=== PATIENT | male | born 1940 | race Caucasian/White ===

== ENCOUNTER 2019-02-10 15:47 | Emergency (ER) | payer MEDICARE, BC ==
[~2019-02-10] VITALS: Ht 172.7 cm; Wt 96.2 kg
[2019-02-10 16:29] LABS: BASO % 1 % (0-3); EOS # 0.1 x10^3/uL (0.0-0.7); EOS % 2 % (0-3); HEMATOCRIT 39.4 % (39.0-53.0); HEMOGLOBIN 13.1 g/dL (13.0-17.5); LYMPH % 21 % (24-48); MEAN CORPUSCULAR HEMOGLOBIN 31 pg (25-35); MEAN CORPUSCULAR HGB CONC 33 g/dL (31-37); MEAN CORPUSCULAR VOLUME 93 fL (79-100); MONO # 0.5 x10^3/uL (0.0-1.1); MONO % 10 % (0-9); NEUT # 3.3 x10^3/uL (1.8-7.7); NEUT % 67 % (31-73); PLATELET COUNT 161 x10^3/uL (140-400); RED BLOOD COUNT 4.23 x10^6/uL (4.30-5.70); RED CELL DISTRIBUTION WIDTH 14.9 % (11.5-14.5); WHITE BLOOD COUNT 4.9 x10^3/uL (4.0-11.0)
[2019-02-10] MEDS ORDERED: MORPHINE SULFATE 2 MG/ML VIAL. IV/SQ PRN (16:30)
[2019-02-10 16:48] LABS: CALCIUM 8.8 mg/dL (8.5-10.1); GFR 72.1; POTASSIUM 4.1 mmol/L (3.5-5.1)
[2019-02-10 16:53] LABS: PROTHROMBIN TIME PATIENT 13.2 SEC (11.7-14.0)
--- NOTE | 2019-02-10 16:53 | RAD ---
EXAM: Chest, single view. HISTORY: Shortness of air. COMPARISON: None. FINDINGS: A frontal view of the chest is obtained. There is mild diffuse increased interstitial opacity. There is focal opacity overlying the left upper lobe likely due to a prominent first rib end. There is no consolidation, pleural effusion or pneumothorax. There is a prominent cardiac silhouette. IMPRESSION: 1. Mild diffuse increased interstitial opacity suggesting interstitial infiltrate. There is no or consolidation. 2. Mild cardiomegaly. Electronically signed by: Gia Suh MD (02/10/2019 4:50 PM) [place] [id number]
[2019-02-10 16:55] LABS: ALBUMIN 3.7 g/dL (3.4-5.0); ALBUMIN/GLOBULIN RATIO 1.2 (1.0-1.7); TOTAL BILIRUBIN 1.2 mg/dL (0.2-1.0); TOTAL PROTEIN 6.8 g/dL (6.4-8.2)
[2019-02-10 16:59] LABS: D-DIMER 0.46 ug/mlFEU (0.00-0.50)
[2019-02-10 17:26] LABS: BILIRUBIN,URINE NEGATIVE (NEG); CLARITY,URINE CLOUDY; COLOR,URINE YELLOW; NITRITE,URINE NEGATIVE (NEG); PROTEIN,URINE NEGATIVE (NEG-TRACE)
[2019-02-10 17:32] LABS: BACTERIA,URINE 0 /HPF (0-FEW); RBC,URINE 0 /HPF (0-2); SQUAMOUS EPITHELIAL CELL,UR OCC /LPF; WBC,URINE OCC /HPF (0-4)
[2019-02-10 18:13] VITALS: BP 178/86
--- NOTE | 2019-02-10 18:14 | PHYS DOC ---
Past Medical History Past Medical History: A-Fib, GERD, High Cholesterol, Other Additional Past Medical Histor: prostatitis; Past Surgical History: Other Additional Past Surgical Histo: bilateral knee; R foot Alcohol Use: Occasionally Drug Use: None Adult General Chief Complaint Chief Complaint: SHORTNESS OF BREATH HPI HPI Patient is a 78 year old male with history of A. fib, high cholesterol, who presents to the ED today complaining of episodes of shortness of breath and chest tightness intermittently for 18 months. Patient denies any exacerbating or relieving factors. Denies any symptoms right now. He reports he was already seen by the PCP at the onset of his symptoms and had a negative stress test approximately one and a half years ago. He also reports he has established care with a service aide Dr. Leggett, was seen on Sunday and he was told everything is okay and he needs to follow-up in 6 months. He reports he was previously on Xaletro for A. fib which was discontinued over a year ago because of bleeding. He states they tried Cardizem which made him lose his appetite and lose weight which was stopped. He states right now he is not on anything for A. fib. Review of Systems Review of Systems Constitutional: Denies fever or chills [] Eyes: Denies change in visual acuity, redness, or eye pain [] HENT: Denies nasal congestion or sore throat [] Respiratory: Reports shortness of breath. Denies cough Cardiovascular: Reports chest tightness GI: Denies abdominal pain, nausea, vomiting, bloody stools or diarrhea [] : Denies dysuria or hematuria [] Musculoskeletal: Denies back pain or joint pain [] Integument: Denies rash or skin lesions [] Neurologic: Denies headache, focal weakness or sensory changes [] Endocrine: Denies polyuria or polydipsia [] All other systems were reviewed and found to be within normal limits, except as documented in this note. Current Medications Current Medications Current Medications Medications (Trade) Dose Ordered Sig/[place] Start Time Stop Time Status Last Admin Dose Admin Morphine Sulfate (Morphine Sulfate) 2 mg PRN Q15MIN PRN 02/10/19 16:30 02/11/19 16:29 Allergies Allergies Allergies Coded Allergies Type Severity Reaction Last Updated Verified No Known Drug Allergies 02/10/19 No Physical Exam Physical Exam Constitutional: Well developed, well nourished, no acute distress, non-toxic appearance. [] HENT: Normocephalic, atraumatic, bilateral external ears normal, oropharynx moist, no oral exudates, nose normal. GAMBELL Eyes: PERRLA, EOMI, conjunctiva normal, no discharge. [] Neck: Normal range of motion, no tenderness, supple, no stridor. [] Cardiovascular:Heart rate regular rhythm, no murmur [] Lungs & Thorax: Bilateral breath sounds clear to auscultation [] Abdomen: Bowel sounds normal, soft, no tenderness, no masses, no pulsatile masses. [] Skin: Warm, dry, no erythema, no rash. [] Back: No tenderness, no CVA tenderness. [] Extremities: No tenderness, no cyanosis, no clubbing, ROM intact, no edema. [] Neurologic: Alert and oriented X 3, normal motor function, normal sensory function, no focal deficits noted. [] Psychologic: Affect normal, judgement normal, mood normal. [] Current Patient Data Vital Signs Vital Signs Date Time Temp Pulse Resp B/P (MAP) Pulse Ox O2 Delivery O2 Flow Rate FiO2 02/10/19 15:51 97.7 88 16 167/84 (111) 96 Room Air 97.7 Lab Values Laboratory Tests Test 02/10/19 16:05 02/10/19 17:13 White Blood Count 4.9 x10^3/uL (4.0-11.0) Red Blood Count 4.23 x10^6/uL (4.30-5.70) L Hemoglobin 13.1 g/dL (13.0-17.5) Hematocrit 39.4 % (39.0-53.0) Mean Corpuscular Volume 93 fL (79-100) Mean Corpuscular Hemoglobin 31 pg (25-35) Mean Corpuscular Hemoglobin Concent 33 g/dL (31-37) Red Cell Distribution Width 14.9 % (11.5-14.5) H Platelet Count 161 x10^3/uL (140-400) Neutrophils (%) (Auto) 67 % (31-73) Lymphocytes (%) (Auto) 21 % (24-48) L Monocytes (%) (Auto) 10 % (0-9) H Eosinophils (%) (Auto) 2 % (0-3) Basophils (%) (Auto) 1 % (0-3) Neutrophils # (Auto) 3.3 x10^3/uL (1.8-7.7) Lymphocytes # (Auto) 1.0 x10^3/uL (1.0-4.8) Monocytes # (Auto) 0.5 x10^3/uL (0.0-1.1) Eosinophils # (Auto) 0.1 x10^3/uL (0.0-0.7) Basophils # (Auto) 0.0 x10^3/uL (0.0-0.2) Prothrombin Time 13.2 SEC (11.7-14.0) Prothrombin Time INR 1.0 (0.8-1.1) Activated Partial Thromboplast Time 33 SEC (24-38) D-Dimer (Magaly) 0.46 ug/mlFEU (0.00-0.50) Sodium Level 142 mmol/L (136-145) Potassium Level 4.1 mmol/L (3.5-5.1) Chloride Level 105 mmol/L (98-107) Carbon Dioxide Level 28 mmol/L (21-32) Anion Gap 9 (6-14) Blood Urea Nitrogen 19 mg/dL (8-26) Creatinine 1.0 mg/dL (0.7-1.3) Estimated GFR (Cockcroft-Gault) 72.1 BUN/Creatinine Ratio 19 (6-20) Glucose Level 108 mg/dL (70-99) H Calcium Level 8.8 mg/dL (8.5-10.1) Magnesium Level 2.0 mg/dL (1.8-2.4) Total Bilirubin 1.2 mg/dL (0.2-1.0) H Aspartate Amino Transferase (AST) 15 U/L (15-37) Alanine Aminotransferase (ALT) 12 U/L (16-63) L Alkaline Phosphatase 75 U/L (46-116) Creatine Kinase 81 U/L (39-308) Creatine Kinase MB (Mass) 1.7 ng/mL (0.0-3.6) Creatine Kinase MB Relative Index 2.1 % (0-4) Troponin I Quantitative 0.049 ng/mL (0.000-0.055) RO-Ikg-L-Type Natriuretic Peptide 2142 pg/mL (0-449) H Total Protein 6.8 g/dL (6.4-8.2) Albumin 3.7 g/dL (3.4-5.0) Albumin/Globulin Ratio 1.2 (1.0-1.7) Lipase 61 U/L (73-393) L Thyroid Stimulating Hormone (TSH) 1.505 uIU/mL (0.358-3.74) Urine Color Yellow Urine Clarity Cloudy Urine pH 6.0 Urine Specific [place] 1.020 Urine Protein Negative mg/dL (NEG-TRACE) Urine Glucose (UA) Negative mg/dL (NEG) Urine Ketones (Stick) Negative mg/dL (NEG) Urine Blood Negative (NEG) Urine Nitrite Negative (NEG) Urine Bilirubin Negative (NEG) Urine Urobilinogen Dipstick 1.0 mg/dL (0.2 mg/dL) Urine Leukocyte Esterase Negative (NEG) Urine RBC 0 /HPF (0-2) Urine WBC Occ /HPF (0-4) Urine Squamous Epithelial Cells Occ /LPF Urine Bacteria 0 /HPF (0-FEW) Urine Mucus Slight /LPF Laboratory Tests 02/10/19 16:05 Laboratory Tests 02/10/19 16:05 EKG EKG [address] Meier sinus rhythm HR 73 no STEMI[] Radiology/Procedures Radiology/Procedures []PROCEDURE: PORTABLE CHEST 1V EXAM: Chest, single view. HISTORY: Shortness of air. COMPARISON: None. FINDINGS: A frontal view of the chest is obtained. There is mild diffuse increased interstitial opacity. There is focal opacity overlying the left upper lobe likely due to a prominent first rib end. There is no consolidation, pleural effusion or pneumothorax. There is a prominent cardiac silhouette. IMPRESSION: 1. Mild diffuse increased interstitial opacity suggesting interstitial infiltrate. There is no or consolidation. 2. Mild cardiomegaly. Electronically signed by: Gia Yu MD (02/10/2019 4:50 PM) [facility] DICTATED and SIGNED BY: GIA YU MD DATE: 02/10/191649 Course & Med Decision Making Course & Med Decision Making Pertinent Labs and Imaging studies reviewed. (See chart for details) This is a 78-year-old male patient presented to the ED today complaining of chest tightness and shortness of breath intermittently for 18 months. See history of present illness. Patient was on Sunday by the service aide and was informed everything is okay, they recommended he follows up as an outpatient in 6 months. 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 fib. CBC, CMP, troponin, d-dimer, negative for any acute findings. Patient has no chest pain or shortness of breath in the ED. Chest x-ray shows interstitial infiltrates with no consolidation. Patient is in no distress. Discussed results with him and . He has good follow-up. His vitals are stable. I recommended following up with the service aide and PCP. He started asking if he can have a stress test in the ED. He had one almost 2 years ago which was negative. Informed patient we do not do stress testing in the ED. Informed him if he wants to he can get admitted and see if the service aide will do one otherwise he can follow-up with his service aide and PCP and they can arrange for one as an outpatient if the deem necessary. Patient agreed to following up with his own PCP and service aide. Dragon Disclaimer Dragon Disclaimer This electronic medical record was generated, in whole or in part, using a voice recognition dictation system. Departure Departure Impression: Primary Impression: Shortness of breath Disposition: 01 HOME, SELF-CARE Condition: STABLE Referrals: UNKNOWN PCP NAME (PCP) CAMILLA DAO MD follow up in the course of this week Patient Instructions: Shortness of Breath, [id number] Additional Instructions: You were evaluated in the emergency room, your workup was negative for any acute findings. We highly recommend you continue following up with the primary care doctor as well as service aide. ELIZ FISHER BLOOD BANK ATTENDANT Feb 10, 2019 18:14
--- NOTE | 2019-02-11 06:11 | EKG ---
[facility] [address] [place] [address] Test Date: 2019-02-10 Test Time: 15:51:59 Pat Name: KENNY NIETO Department: Room: Gender: M [employer]: : 1940 Requested By: ELIZ FISHER Order Number: [id number] Reading MD: Measurements Intervals [place] Rate: 73 P: 58 [place]: 228 QRS: -71 QRSD: 104 T: 44 QT: 388 QTc: 431 Interpretive Statements SINUS RHYTHM VENTRICULAR PREMATURE COMPLEX(ES) PROLONGED [place] INTERVAL ABNORMAL LEFT AXIS DEVIATION R-S TRANSITION ZONE IN V LEADS DISPLACED TO THE LEFT LEFT ANTERIOR FASCICULAR BLOCK ABNORMAL ECG RI6.01 No previous ECG available for comparison
== END 2019-02-10 18:23 | disposition home or self-care (01) ==
LOC: ER 15:47
DX: R06.02 Shortness of breath (principal); R07.89 Other chest pain; I48.91 Unspecified atrial fibrillation; E78.00 Pure hypercholesterolemia, unspecified; K21.9 Gastro-esophageal reflux disease without esophagitis
CPT/HCPCS: 36415; 71045; 80053; 81001; 82553; 83690; 83735; 83880; 84443; 84484; 85025; 85379; 85610; 85730; 93005; 99285-25